=== PATIENT | female | born 1985 | race Caucasian/White ===

== ENCOUNTER 2017-02-24 13:47 | Emergency (ER) | payer MEDICAID ==
[~2017-02-24] VITALS: Ht 157.5 cm; Wt 91.0 kg
[2017-02-24 13:50] VITALS: BP 130/70
== END 2017-02-24 15:38 | disposition home or self-care (01) ==
LOC: ED 15:32
DX: S90.32XA Contusion of left foot, initial encounter (principal); Z88.0 Allergy status to penicillin; X58.XXXA Exposure to other specified factors, initial encounter; Y93.89 Activity, other specified; Y92.89 Other specified places as the place of occurrence of the external cause; Y99.8 Other external cause status
CPT/HCPCS: 99284

== ENCOUNTER 2019-07-30 20:19 | Emergency (ER) | payer MEDICAID ==
[~2019-07-30] VITALS: Ht 157.5 cm; Wt 85.0 kg
[2019-07-30 22:09] LABS: RAPID INFLUENZA A Negative (Negative); RAPID INFLUENZA B Negative (Negative)
[2019-07-30 23:00] LABS: ALANINE AMINOTRANSFERASE 122 U/L (12-78); ANION GAP 4 mmol/L (5-15); CALCIUM 9.2 mg/dL (8.5-10.1); CHLORIDE 100 mmol/L (98-107); CREATININE 0.83 mg/dL (0.55-1.02)
[2019-07-30 23:02] LABS: ALKALINE PHOSPHATASE 93 U/L (45-117); BILIRUBIN,TOTAL 0.5 mg/dL (0.2-1.0); TOTAL PROTEIN 7.5 g/dL (6.4-8.2)
[2019-07-30 23:32] VITALS: BP 121/78
== END 2019-07-30 23:48 | disposition home or self-care (01) ==
LOC: ED 20:52
DX: J20.8 Acute bronchitis due to other specified organisms (principal); B34.9 Viral infection, unspecified; R94.31 Abnormal electrocardiogram [ECG] [EKG]; R10.13 Epigastric pain
CPT/HCPCS: 36415; 71045; 80053; 87081; 87400; 87880; 93005; 99285